=== PATIENT | male | born 1955 | race Caucasian/White ===

== ENCOUNTER 2016-10-24 02:54 | Emergency (ER) | payer SELFPAY ==
[~2016-10-24] VITALS: Ht 177.8 cm; Wt 101.0 kg
[2016-10-24 02:56] VITALS: BP 216/108; PULSE 71; RESP 16; TEMP 98; O2SAT 98
[2016-10-24] MEDS ORDERED: SERT-132 PO ×2 (04:55→05:32)
[2016-10-24] MEDS ORDERED: LISI20TA3 PO ×2 (04:55→05:32)
[2016-10-24 04:57] VITALS: BP 181/102
--- NOTE | 2016-10-24 05:24 | RADRPT ---
EXAM DATE/TIME: 10/24/2016 05:19 [place] COMPARISON: No previous studies available for comparison. INDICATIONS : Shortness of breath. MEDICAL HISTORY : None. SURGICAL HISTORY : None. ENCOUNTER: Initial ACUITY: 1 day PAIN SCORE: 0/10 LOCATION: Bilateral chest FINDINGS: PA and lateral views of the chest demonstrate the lungs to be symmetrically aerated without evidence of mass, infiltrate or effusion. The cardiomediastinal contours are unremarkable. Osseous structure s are intact. CONCLUSION: No acute disease. Kp Meza MD on October 24, 2016 at 5:21 Board Certified Radiologist. This report was verified electronically.
[2016-10-24] MEDS ORDERED: PRED20 PO (05:32)
--- NOTE | 2016-10-24 05:32 | PD ---
HPI Chief Complaint: Hypertension Time Seen by Provider: 04:51 Travel History International Travel<30 days: No Contact w/Intl Traveler<30days: No Traveled to known affect area: No History of Present Illness HPI Patient is a 61-year-old male presents to emergency department today for evaluation of high blood pressure and rash. Patient states she's been out of his blood pressure medication for several months and would like a refill. He states his also been having a rash for the past week on his neck and chest which is. He can nature. Denies any new soaps or exposures. Denies any chest pain but does endorse some very mild shortness of breath. Patient denies any hematuria pain in his back decreased urine output or swelling of his legs. Patient denies any headache. Never had a rash like this before and is gradually worsening. PFSH Past Medical History Hx Anticoagulant Therapy: Yes Cardiovascular Problems: Yes (HTN) Hypertension: Yes Respiratory: Yes (COPD) Social History Alcohol Use: No Tobacco Use: Yes Substance Use: No Allergies-Medications (Allergen,Severity, Reaction): Coded Allergies: Zithromax (Verified Allergy, Unknown, 10/24/16) Reported Meds & Prescriptions Reported Meds & Active Scripts Active Prednisone 20 Mg Tab 60 Mg PO DAILY 5 Days Lisinopril-Hctz 20-25 Mg Tab 1 Tab PO DAILY Sertraline (Sertraline HCl) 50 Mg Tab 50 Mg PO DAILY Review of Systems Except as stated in HPI: all other systems reviewed are Neg Physical Exam Narrative GENERAL: Well-nourished, well-developed patient. SKIN: Warm and dry. There are some pruritic hives primarily on the anterior portion of the neck and superior most chest. No involvement of the extremities. HEAD: Normocephalic. EYES: No scleral icterus. No injection or drainage. NECK: Supple, trachea midline. No JVD or lymphadenopathy. CARDIOVASCULAR: Regular rate and rhythm without murmurs, gallops, or rubs. RESPIRATORY: Breath sounds equal bilaterally. No accessory muscle use. No rales or rhonchi. GASTROINTESTINAL: Abdomen soft, non-tender, nondistended. MUSCULOSKELETAL: No cyanosis, or edema. BACK: Nontender without obvious deformity. No CVA tenderness. Data Data Last Documented VS Vital Signs Date Time Temp Pulse Resp B/P Pulse Ox O2 Delivery O2 Flow Rate FiO2 10/24/16 04:57 181/102 10/24/16 02:56 98.0 71 16 98 Room Air Orders Chest, Pa & Lat (10/24/16 ) Electrocardiogram (10/24/16 ) Prednisone (Deltasone) (10/24/16 06:00) MDM Medical Decision Making Medical Screen Exam Complete: Yes Emergency Medical Condition: Yes Interpretation(s) EKG shows normal sinus rhythm with a normal axis and normal R-wave progression. There is nonspecific ST changes in V4 through V6 without any reciprocal changes. Intervals within normal limits. This is an abnormal EKG. Differential Diagnosis Allergic hives, CHF unlikely, AMI unlikely, hypertensive emergency unlikely. Narrative Course Patient roomed in the emergency department, his chief complaint to me today is actually rash. His EKG does show some nonspecific changes though he has no symptoms to suggest ACS at this time. Chest x-ray is negative. Discussed symptomatic management with prednisone E for follow-up primary care physician. He is given a one-month prescription of his chronic meds. Discussed return to ED criteria. Diagnosis Primary Impression: Hives Med/Other Pt SpecificInfo: Prescription(s) given Scripts Prednisone 20 Mg Tab60 Mg PO DAILY 5 Days Ref 0 Prov:Bob Washington MD 10/24/16 Lisinopril-Hctz 20-25 Mg Tab1 Tab PO DAILY #30 TAB Ref 0 Prov:Bob Washington MD 10/24/16 Sertraline 50 Mg Tab50 Mg PO DAILY #30 TAB Ref 0 Prov:Bob Washington MD 10/24/16 Disposition: 01 DISCHARGE HOME Condition: Stable Bob Washington MD Oct 24, 2016 05:32
[2016-10-24] MEDS ORDERED: predniSONE 20 MG TAB PO ONE (06:00)
--- NOTE | 2016-10-24 10:43 | EKG ---
Date Performed: 10/24/2016 Time Performed: 05:24:55 PTAGE: 61 years EKG: Sinus rhythm WITH SINUS ARRHYTHMIA POSSIBLE RIGHT VENTRICULAR CONDUCTION DELAY MODERATE T-WAVE ABNORMALITY, CONSI JUAN CARLOS LATERAL ISCHEMIA ABNORMAL ECG NO PREVIOUS TRACING DOCTOR: Hugh Moody Interpretating Date/Time 10/24/2016 10:42:56
== END 2016-10-24 06:04 | disposition home or self-care (01) ==
LOC: NEPC 02:54
DX: L50.9 Urticaria, unspecified (principal); I10 Essential (primary) hypertension; Z72.0 Tobacco use
CPT/HCPCS: 71020; 93005; 99284; J7512